=== PATIENT | female | born 1995 | race Caucasian/White ===

== ENCOUNTER 2024-09-17 18:33 | Inpatient (IN) | payer BC ==
[2024-09-17] MEDS ORDERED: Misoprostol 200 MCG Tab PO PRN (19:31)
[2024-09-17] MEDS ORDERED: Sodium Chloride 0.9% 2.5 ML Syringe FLUSH PRN (19:31)
[2024-09-17] MEDS ORDERED: Lidocaine 1% 50 ML MDV INJECT PRN (19:31)
[2024-09-17] MEDS ORDERED: Tranexamic Acid in NACL,ISO-OS 1,000 MG in Premix Bag 1 BAG IV PRN (19:31)
[2024-09-17] MEDS ORDERED: Methylergonovine 0.2 MG/1 ML Amp IM PRN (19:31)
[2024-09-17] MEDS ORDERED: Sodium Chloride 0.9% 10 ML Syringe FLUSH PRN (19:31)
[2024-09-17] MEDS ORDERED: Carboprost Tromethamine 250 MCG/1 mL Vial IM PRN (19:31)
[2024-09-17] MEDS ORDERED: Water For Irrigation,Sterile 1,000 ML Container IRR PRN (19:31)
[2024-09-17] MEDS ORDERED: Sodium Chloride 0.9% 20 ML SDV IV PRN (19:31)
[2024-09-17] MEDS ORDERED: Ondansetron 4 MG/2 ML SDV IVPUSH PRN (20:00)
[2024-09-17 20:47] LABS: HEMATOCRIT 36.4 % (37.0-47.0); HEMOGLOBIN 12.5 g/dL (12.0-16.0); MEAN CORPUSCULAR HEMOGLOBIN 29.5 pg (28.0-32.0); MEAN CORPUSCULAR HGB CONC 34.3 g/dL (32.0-36.0); MEAN CORPUSCULAR VOLUME 85.8 fL (83.0-99.0); PLATELET COUNT,PLT 220 K/uL (150-400); RED BLOOD CELL COUNT 4.24 M/uL (4.10-5.30); WHITE BLOOD CELL COUNT,WBC 12.29 K/uL (3.9-11.3)
[2024-09-17 21:37] LABS: CREATININE,URINE RAND 22.3 mg/dL; PROTEIN CREATININE RATIO,URINE 0.3; PROTEIN,URINE RANDOM 7.5 mg/dL (<11.9)
[2024-09-17 21:45] LABS: A/G RATIO 0.7 (0.9-1.6); ALBUMIN 2.8 g/dL (3.4-5.0); BILIRUBIN TOTAL 0.4 mg/dL (0.2-1.0); CALCIUM 9.2 mg/dL (8.5-10.1); CARBON DIOXIDE,CO2 19.2 mmol/L (21.0-32.0); CREATININE 0.8 mg/dL (0.6-1.0); EST CRCL DRUG DOSING (CG) 99.99 mL/min; POTASSIUM,K 3.8 mmol/L (3.5-5.1); PROTEIN TOTAL,TP 6.9 g/dL (6.4-8.2)
[2024-09-17] MEDS: Butorphanol 2 MG/ML SDV IVPUSH PRN (22:43)
[2024-09-17] MEDS: Lactated Ringers 1,000 ML IV SCH (22:50)
[2024-09-17] MEDS ORDERED: Phenylephrine HCl In 0.9% NaCl 1 MG/10 ML Syringe ONE (23:18)
[2024-09-17] MEDS ORDERED: Bupivacaine 0.5% 10 ML SDV ONE (23:18)
[2024-09-17] MEDS ORDERED: Ropivacaine HCl/PF 200 ML ONE (23:18)
[2024-09-17] MEDS ORDERED: Bupivacaine 0.5% 10 ML SDV INJECT ONE (23:45)
[2024-09-17] MEDS ORDERED: ePHEDrine 50 MG/ML SDV IVPUSH PRN (23:45)
[2024-09-17] MEDS ORDERED: dexmedeTOMIDine HCl 200 MCG/2 ML SDV EPIDUR SCH (23:45)
[2024-09-17] MEDS ORDERED: Phenylephrine HCl In 0.9% NaCl 1 MG/10 ML Syringe IVPUSH PRN (23:45)
[2024-09-17] MEDS ORDERED: ePHEDrine 50 MG/ML SDV IM PRN (23:45)
[2024-09-18] MEDS: Ropivacaine HCl/PF 400 MG in Premix Bag 1 BAG EPIDUR SCH (00:02)
[2024-09-18] MEDS: Ondansetron 4 MG/2 ML SDV ONE (06:17)
[2024-09-18] MEDS: Oxytocin/0.9 % Sodium Chloride 30 UNIT/500 ML BAG IV SCH (12:18)
[2024-09-18] MEDS ORDERED: Simethicone 80 MG Tab.Chew PO PRN (13:37)
[2024-09-18] MEDS ORDERED: Oxytocin 10 Units/1 ML SDV IM PRN (13:37)
[2024-09-18 13:45] LABS: PH,UMBILICAL ARTERIAL 7.178 (7.18-7.38); PH,UMBILICAL VENOUS 7.333 (7.25-7.45)
[2024-09-18] MEDS: Ibuprofen 800 MG Tab PO PRN (15:02)
[2024-09-18] MEDS: Witch Hazel Medicated Pads 40/Jar TOP PRN (15:03)
[2024-09-18] MEDS: Lanolin 100% Cream 7 GM Tube TOP PRN (15:04)
[2024-09-18] MEDS: Benzocaine/Menthol 20%-0.5% Spray 78 GM Cannister TOP PRN (15:04)
[2024-09-18] MEDS: Acetaminophen 500 MG Tab PO PRN (20:23)
[2024-09-18] MEDS: Docusate Sodium 100 MG Cap PO PRN (20:23)
[2024-09-19 05:47] LABS: BASOPHILS ABSOLUTE AUTO 0.03 K/uL (0.00-0.20); BASOPHILS PERCENT AUTO 0.2 % (0.0-1.0); EOSINOPHILS ABSOLUTE AUTO 0.05 K/uL (0.00-0.45); EOSINOPHILS PERCENT AUTO 0.4 % (0.0-6.0); HEMATOCRIT 29.8 % (37.0-47.0); HEMOGLOBIN 9.9 g/dL (12.0-16.0); IMMATURE GRAN ABSOLUTE AUTO 0.04 K/uL (0.00-0.05); IMMATURE GRAN PERCENT AUTO 0.3 % (0.0-0.4); LYMPHOCYTES ABSOLUTE AUTO 2.12 K/uL (1.00-4.80); LYMPHOCYTES PERCENT AUTO 16.4 % (24.0-44.0); MEAN CORPUSCULAR HEMOGLOBIN 29.3 pg (28.0-32.0); MEAN CORPUSCULAR HGB CONC 33.2 g/dL (32.0-36.0); MEAN CORPUSCULAR VOLUME 88.2 fL (83.0-99.0); MEAN PLATELET VOLUME 13.2 fL (9.4-12.3); MONOCYTES ABSOLUTE AUTO 0.72 K/uL (0.00-0.80); MONOCYTES PERCENT AUTO 5.6 % (0.0-8.0); NEUTROPHILS ABSOLUTE AUTO 9.98 K/uL (1.80-7.70); NEUTROPHILS PERCENT AUTO 77.1 % (41.0-71.0); PLATELET COUNT,PLT 151 K/uL (150-400); RED BLOOD CELL COUNT 3.38 M/uL (4.10-5.30); WHITE BLOOD CELL COUNT,WBC 12.94 K/uL (3.9-11.3)
== END 2024-09-19 13:45 | disposition home or self-care (01) | DRG 560 ==
LOC: MW.OBCHECK 18:33 → MW.OB 18:35 → MW.OBCHECK 09-18 08:45 → MW.OB 09-18 12:43 → OBSVTOIN 09-18 13:38 → MW.OB 09-18 21:15
PROVIDERS: ADMIT Obstetrics & Gynecology; ATTEND Obstetrics & Gynecology
PROC: 10E0XZZ Delivery of Products of Conception, External Approach (ICD-10-PCS; principal; 2024-09-18)
PROC: 0KQM0ZZ Repair Perineum Muscle, Open Approach (ICD-10-PCS; 2024-09-18)
PROC: 3E0R3BZ Introduction of Anesthetic Agent into Spinal Canal, Percutaneous Approach (ICD-10-PCS; 2024-09-18)
PROC: 4A033R1 Measurement of Arterial Saturation, Peripheral, Percutaneous Approach (ICD-10-PCS; 2024-09-18)
DX: O76 Abnormality in fetal heart rate and rhythm complicating labor and delivery (principal); N13.30 Unspecified hydronephrosis; E66.811 Obesity, class 1; O35.EXX0 Maternal care for other (suspected) fetal abnormality and damage, fetal genitourinary anomalies, not applicable or unspecified; O99.214 Obesity complicating childbirth; O90.81 Anemia of the puerperium; O13.4 Gestational [pregnancy-induced] hypertension without significant proteinuria, complicating childbirth; O70.1 Second degree perineal laceration during delivery; Z98.890 Other specified postprocedural states; Z37.0 Single live birth; Z3A.39 39 weeks gestation of pregnancy
CPT/HCPCS: 01967; 36415; 51702; 59025; 59409; 80053; 82570; 82803; 84112; 84156; 85025; 85027; 86592; 86850; 86900; 86901; A9270-GY; J0595; J0665; J2371; J2405; J2590; J2795; J7120